=== PATIENT | male | born 1950 | race Caucasian/White ===

== ENCOUNTER → 2018-08-06 | Outpatient (REF) | payer MEDICARE ==
[~2018-08-06] MED LIST: ZANTAC150 M1 PO
== END | disposition home or self-care (01) ==
LOC: STRESS 07:21 → NUCMED 07:30
PROVIDERS: ATTEND Internal Medicine
DX: R55 Syncope and collapse (principal); I49.5 Sick sinus syndrome; I49.9 Cardiac arrhythmia, unspecified
CPT/HCPCS: A9502; J2785

== ENCOUNTER → 2018-09-12 | Outpatient (REF) | END | disposition home or self-care (01) | DRG 642 | LOC: LAB 08:40 | DX: E78.2 Mixed hyperlipidemia (principal); R97.20 Elevated prostate specific antigen [PSA] ==